=== PATIENT | female | born 1930 | race Caucasian/White ===

== ENCOUNTER 2016-05-05 05:08 | Inpatient (IN) | payer OTHER, BC ==
[~2016-05-05] VITALS: Ht 165.1 cm; Wt 109.4 kg
[~2016-05-05 05:08] MED LIST: ADVAIR HFA120 INHALA IH; ASPIR-LOW81 MG PO; BENICAR40 MG PO; CIPROFLOXACIN500 M1 PO; COUMADIN2 MG PO; COUMADIN2.5 MG PO; DUONEB 2.5-0.5 M3 ML AEROSOL; FUROSEMIDE20 MG PO; FUROSEMIDE40 MG PO; HYDROCODON-ACE1 EA11 PO; HYDROCODON-ACE1 EACH PO; IMDUR30 MG PO; ISOSORBIDE MONO30 MG PO; LASIX20 MG PO; LEVOTHYROXINE150 MCG PO; LOSARTAN POTAS100 MG PO; LOSARTAN POTASS50 MG PO; METOPROLOL SUCC25 MG PO; METOPROLOL TART25 MG PO; NITROSTAT0.4 MG SL; SPIRONOLACTONE25 MG PO; SYNTHROID150 MCG PO; TOPROL XL25 MG PO; VITAMIN D2000 UNIT PO
[2016-05-05 05:38] LABS: CREATININE 1.5 mg/dL (0.6-1.3); POTASSIUM 5.6 mEq/L (3.7-5.4)
[2016-05-05 06:08] LABS: HEMATOCRIT 34.6 % (36.0-46.0); MCH 28.4 PG (29.0-34.0); MCHC 33.5 G/DL (30.0-36.0); MCV 84.8 FL (83-99); MEAN PLAT.VOLUME 8.4 uM^3 (9.5-12.4); RBC DIS.WIDTH-CV 18.8 % (11.8-14.6); RBC DIS.WIDTH-SD 57.1 % (39-53); RED BLOOD COUNT 4.08 M/uL (3.80-5.20); WHITE BLOOD COUNT 3.3 K/uL (4.1-10.2)
[2016-05-05] MEDS ORDERED: WARFARIN SODIUM2 MG PO (06:08)
[2016-05-05] MEDS ORDERED: LOSARTAN POTASS50 MG PO (06:08)
[2016-05-05 06:09] LABS: CHLORIDE 101 mEq/L (99-109); POTASSIUM 4.6 mEq/L (3.7-5.4); SODIUM 136 mEq/L (136-147)
[2016-05-05] MEDS ORDERED: ISOSORBIDE DINI30 MG PO (06:10)
[2016-05-05 06:11] LABS: GLUCOSE 73 mg/dL (70-99)
[2016-05-05] MEDS ORDERED: OXYBUTYNIN CHLOR5 MG PO (06:11)
[2016-05-05] MEDS ORDERED: FUROSEMIDE40 MG PO (06:11)
[2016-05-05 06:12] LABS: ANION GAP 11 MEQ/L (2-14)
[2016-05-05 06:13] LABS: EOSINOPHIL (%) 6.6 % (0-5); EOSINOPHIL COUNT 0.2 K/uL (0-0.3); IMMATURE GRANULOCYTE (%) 0.3 % (0.0-0.7); IMMATURE GRANULOCYTE COUNT 0.1 K/uL; LYMPHOCYTE COUNT 0.7 K/uL (1.0-2.8); MONOCYTE (%) 12.6 % (3-12); MONOCYTE COUNT 0.4 K/uL (0-0.8); NEUTROPHIL COUNT 1.9 K/uL (1.8-6.4); PLATELET COUNT 171 K/uL (156-360)
[2016-05-05 06:14] LABS: INTER. NORMALIZED RATIO 2.5; PROTHROMBIN TIME 26.1 (9.2-11.2); PTT 34.7 (25-32)
[2016-05-05 06:15] LABS: GFR ESTIMATE (CALCULATED) 32 mL/min/
[2016-05-05 06:16] LABS: UREA NITROGEN (BUN) 30 mg/dL (9-23)
[2016-05-05 06:19] LABS: TROP-I INTERPRETATION NEGATIVE; TROPONIN-I 0.02 ng/mL (0.0-0.30)
[2016-05-05 06:26] LABS: ADD MIUA? YES; BILIRUBIN NEGATIVE; BLOOD LARGE; COLOR YELLOW ((YELLOW)); GLUCOSE (STRIP) NEGATIVE; KETONES NEGATIVE; LEUKOCYTES LARGE; NITRITE POSITIVE; PROTEIN (STRIP) 30; SPECIFIC GRAVITY 1.013 (1.000-1.030)
[2016-05-05 07:17] LABS: BACTERIA 1+ /HPF; CASTS NONE SEEN /LPF; CRYSTALS NONE SEEN; EPITHELIAL CELLS RARE /HPF; MUCUS NONE SEEN /LPF; RED BLOOD CELLS TNTC /HPF (0-5); UCUL ADDED? YES; WHITE BLOOD CELLS TNTC /HPF (0-5)
[2016-05-05 12:05] VITALS: BP 138/73
[2016-05-05 12:45] LABS: TROP-I INTERPRETATION NEGATIVE; TROPONIN-I 0.02 ng/mL (0.0-0.30)
[2016-05-05 16:57] VITALS: BP 148/69
[2016-05-05 18:22] LABS: TROP-I INTERPRETATION NEGATIVE; TROPONIN-I 0.11 ng/mL (0.0-0.30)
[2016-05-05 22:49] VITALS: BP 143/65
[2016-05-06 07:22] LABS: HEMATOCRIT 33.1 % (36.0-46.0); MCH 28.5 PG (29.0-34.0); MCHC 33.5 G/DL (30.0-36.0); MCV 84.9 FL (83-99); RBC DIS.WIDTH-CV 18.7 % (11.8-14.6); RBC DIS.WIDTH-SD 57.9 % (39-53); WHITE BLOOD COUNT 3.5 K/uL (4.1-10.2)
[2016-05-06 07:32] LABS: INTER. NORMALIZED RATIO 2.8; PROTHROMBIN TIME 29.7 (9.2-11.2)
[2016-05-06 07:45] LABS: ANION GAP 6 MEQ/L (2-14); CHLORIDE 101 MEQ/L (99-109); GFR ESTIMATE (CALCULATED) 32 mL/min/; GLUCOSE 88 mg/dL (70-99); POTASSIUM 4.1 MEQ/L (3.7-5.4); SAMPLE HEMOLYSIS CHECK 0; SAMPLE ICTERIC CHECK 0; SAMPLE LIPEMIA CHECK 0; SODIUM 135 MEQ/L (136-147); UREA NITROGEN (BUN) 28 mg/dL (9-23)
[2016-05-06 08:20] VITALS: BP 120/60
[2016-05-06 08:50] VITALS: BP 140/69
[2016-05-06 09:23] LABS: MEAN PLAT.VOLUME 9.1 uM^3 (9.5-12.4); PLATELET COUNT 118 K/uL (156-360)
[2016-05-06] MEDS ORDERED: LEVO-T150 MCG PO (12:10)
[2016-05-06] MEDS ORDERED: TOPROL XL50 MG PO (12:11)
[2016-05-06] MEDS ORDERED: ISOSORBIDE MONO30 MG PO (12:12)
[2016-05-06 16:47] VITALS: BP 148/77
[2016-05-06 22:23] VITALS: BP 122/72
[2016-05-07 06:49] LABS: HEMATOCRIT 32.4 % (36.0-46.0); MCH 27.9 PG (29.0-34.0); MCV 84.6 FL (83-99); MEAN PLAT.VOLUME 8.9 uM^3 (9.5-12.4); PLATELET COUNT 92 K/uL (156-360); RBC DIS.WIDTH-CV 18.8 % (11.8-14.6); RBC DIS.WIDTH-SD 58.1 % (39-53); RED BLOOD COUNT 3.83 M/uL (3.80-5.20); WHITE BLOOD COUNT 3.9 K/uL (4.1-10.2)
[2016-05-07 07:07] LABS: EOSINOPHIL COUNT 0.3 K/uL (0-0.3); IMMATURE GRANULOCYTE (%) 0.8 % (0.0-0.7); MONOCYTE (%) 10.4 % (3-12); MONOCYTE COUNT 0.4 K/uL (0-0.8); NEUTROPHIL (%) 56.1 % (45-76); NEUTROPHIL COUNT 2.2 K/uL (1.8-6.4)
[2016-05-07 07:10] LABS: INTER. NORMALIZED RATIO 2.8; PROTHROMBIN TIME 29.2 (9.2-11.2)
[2016-05-07 07:14] LABS: ANION GAP 6 MEQ/L (2-14); CHLORIDE 103 MEQ/L (99-109); GFR ESTIMATE (CALCULATED) 28 mL/min/; GLUCOSE 82 mg/dL (70-99); POTASSIUM 4.2 MEQ/L (3.7-5.4); SAMPLE HEMOLYSIS CHECK 0; SAMPLE ICTERIC CHECK 0; SAMPLE LIPEMIA CHECK 0; SODIUM 135 MEQ/L (136-147); UREA NITROGEN (BUN) 27 mg/dL (9-23)
[2016-05-07 08:00] VITALS: BP 138/80
[2016-05-07 16:00] VITALS: BP 175/86
[2016-05-07 23:29] VITALS: BP 144/76
[2016-05-08 07:58] LABS: INTER. NORMALIZED RATIO 2.7; PROTHROMBIN TIME 28.6 (9.2-11.2)
[2016-05-08 08:15] VITALS: BP 170/81
[2016-05-08 11:44] VITALS: BP 165/80
[2016-05-08 16:03] VITALS: BP 131/69
[2016-05-08 20:21] VITALS: BP 183/81
[2016-05-08 23:25] VITALS: BP 121/62
[2016-05-09 08:22] VITALS: BP 143/86
[2016-05-09 09:36] LABS: INTER. NORMALIZED RATIO 2.4; PROTHROMBIN TIME 24.8 (9.2-11.2)
[2016-05-09 16:53] VITALS: BP 181/81
[2016-05-09 23:00] VITALS: BP 143/77
[2016-05-10 06:42] LABS: INTER. NORMALIZED RATIO 2.5; PROTHROMBIN TIME 26.1 (9.2-11.2)
[2016-05-10 08:37] VITALS: BP 132/64
[2016-05-10 17:10] VITALS: BP 132/72
[2016-05-10 23:06] VITALS: BP 116/59
[2016-05-11] VITALS: BP 132/67
[2016-05-11 01:08] LABS: TROP-I INTERPRETATION NEGATIVE; TROPONIN-I 0.02 ng/mL (0.0-0.30)
[2016-05-11 07:02] LABS: INTER. NORMALIZED RATIO 2.5; PROTHROMBIN TIME 26.6 (9.2-11.2)
[2016-05-11 07:16] LABS: TROP-I INTERPRETATION NEGATIVE; TROPONIN-I 0.03 ng/mL (0.0-0.30)
[2016-05-11 07:46] VITALS: BP 122/56
[2016-05-11 12:37] LABS: TROP-I INTERPRETATION NEGATIVE; TROPONIN-I 0.02 ng/mL (0.0-0.30)
[2016-05-11 15:02] LABS: HEMATOCRIT 32.1 % (36.0-46.0); MCHC 32.4 G/DL (30.0-36.0); MCV 86.5 FL (83-99); MEAN PLAT.VOLUME 9.2 uM^3 (9.5-12.4); PLATELET COUNT 98 K/uL (156-360); RBC DIS.WIDTH-CV 19.1 % (11.8-14.6); RBC DIS.WIDTH-SD 59.5 % (39-53); RED BLOOD COUNT 3.71 M/uL (3.80-5.20); WHITE BLOOD COUNT 4.7 K/uL (4.1-10.2)
[2016-05-11 15:05] LABS: ANION GAP 8 MEQ/L (2-14); CHLORIDE 102 MEQ/L (99-109); GFR ESTIMATE (CALCULATED) 21 mL/min/; GLUCOSE 100 mg/dL (70-99); POTASSIUM 4.5 MEQ/L (3.7-5.4); SAMPLE HEMOLYSIS CHECK 0; SAMPLE ICTERIC CHECK 0; SAMPLE LIPEMIA CHECK 0; SODIUM 134 MEQ/L (136-147); UREA NITROGEN (BUN) 46 mg/dL (9-23)
[2016-05-11 16:15] LABS: EOSINOPHIL (%) 2.8 % (0-5); EOSINOPHIL COUNT 0.1 K/uL (0-0.3); IMMATURE GRANULOCYTE (%) 0.2 % (0.0-0.7); LYMPHOCYTE COUNT 0.5 K/uL (1.0-2.8); MONOCYTE (%) 4.4 % (3-12); MONOCYTE COUNT 0.2 K/uL (0-0.8); NEUTROPHIL (%) 81.6 % (45-76); NEUTROPHIL COUNT 3.9 K/uL (1.8-6.4)
[2016-05-11 18:35] VITALS: BP 130/74
[2016-05-11 19:50] VITALS: BP 138/62
[2016-05-12 02:30] VITALS: BP 143/79
[2016-05-12 08:28] LABS: INTER. NORMALIZED RATIO 2.6; PROTHROMBIN TIME 27.1 (9.2-11.2)
[2016-05-12 08:37] LABS: HEMATOCRIT 30.6 % (36.0-46.0); MCH 27.8 PG (29.0-34.0); MCV 86.7 FL (83-99); MEAN PLAT.VOLUME 9.5 uM^3 (9.5-12.4); PLATELET COUNT 89 K/uL (156-360); RBC DIS.WIDTH-CV 19.4 % (11.8-14.6); RED BLOOD COUNT 3.53 M/uL (3.80-5.20); WHITE BLOOD COUNT 4.5 K/uL (4.1-10.2)
[2016-05-12 08:52] LABS: ANION GAP 6 MEQ/L (2-14); CHLORIDE 101 MEQ/L (99-109); GFR ESTIMATE (CALCULATED) 19 mL/min/; GLUCOSE 87 mg/dL (70-99); SAMPLE HEMOLYSIS CHECK 0; SAMPLE ICTERIC CHECK 0; SAMPLE LIPEMIA CHECK 0; SODIUM 132 MEQ/L (136-147); UREA NITROGEN (BUN) 50 mg/dL (9-23)
[2016-05-12 08:54] LABS: EOSINOPHIL COUNT 0.3 K/uL (0-0.3); IMMATURE GRANULOCYTE (%) 0.2 % (0.0-0.7); LYMPHOCYTE COUNT 0.6 K/uL (1.0-2.8); MONOCYTE (%) 7.8 % (3-12); MONOCYTE COUNT 0.4 K/uL (0-0.8); NEUTROPHIL (%) 72.1 % (45-76); NEUTROPHIL COUNT 3.3 K/uL (1.8-6.4)
[2016-05-12 09:06] VITALS: BP 133/61
[2016-05-12 17:55] VITALS: BP 151/65
[2016-05-12 23:50] VITALS: BP 127/65
[2016-05-13 04:00] VITALS: BP 138/78
[2016-05-13 08:42] VITALS: BP 150/66
[2016-05-13 09:13] LABS: HEMATOCRIT 31.9 % (36.0-46.0); MCH 28.6 PG (29.0-34.0); MCHC 33.2 G/DL (30.0-36.0); MCV 86.2 FL (83-99); PLATELET COUNT 104 K/uL (156-360); RBC DIS.WIDTH-CV 19.5 % (11.8-14.6); RBC DIS.WIDTH-SD 60.7 % (39-53); WHITE BLOOD COUNT 4.5 K/uL (4.1-10.2)
[2016-05-13 09:21] LABS: INTER. NORMALIZED RATIO 2.5; PROTHROMBIN TIME 25.8 (9.2-11.2)
[2016-05-13 09:29] LABS: ANION GAP 5 MEQ/L (2-14); CHLORIDE 98 MEQ/L (99-109); GFR ESTIMATE (CALCULATED) 14 mL/min/; GLUCOSE 91 mg/dL (70-99); POTASSIUM 5.1 MEQ/L (3.7-5.4); SAMPLE HEMOLYSIS CHECK 0; SAMPLE ICTERIC CHECK 0; SAMPLE LIPEMIA CHECK 0; SODIUM 130 MEQ/L (136-147); UREA NITROGEN (BUN) 57 mg/dL (9-23)
[2016-05-13 09:31] LABS: EOSINOPHIL COUNT 0.3 K/uL (0-0.3); IMMATURE GRANULOCYTE (%) 0.2 % (0.0-0.7); LYMPHOCYTE COUNT 0.8 K/uL (1.0-2.8); MONOCYTE (%) 6.7 % (3-12); MONOCYTE COUNT 0.3 K/uL (0-0.8); NEUTROPHIL (%) 68.7 % (45-76); NEUTROPHIL COUNT 3.1 K/uL (1.8-6.4)
[2016-05-13 13:00] VITALS: BP 120/55
[2016-05-13 16:14] VITALS: BP 107/52
[2016-05-13 21:16] VITALS: BP 110/70
[2016-05-14 00:35] VITALS: BP 110/70
[2016-05-14 04:40] VITALS: BP 110/75
[2016-05-14 06:37] LABS: HEMATOCRIT 31.9 % (36.0-46.0); MCH 27.9 PG (29.0-34.0); MCHC 32.3 G/DL (30.0-36.0); MCV 86.4 FL (83-99); MEAN PLAT.VOLUME 9.3 uM^3 (9.5-12.4); PLATELET COUNT 97 K/uL (156-360); RBC DIS.WIDTH-CV 19.5 % (11.8-14.6); RBC DIS.WIDTH-SD 61.6 % (39-53); RED BLOOD COUNT 3.69 M/uL (3.80-5.20); WHITE BLOOD COUNT 4.2 K/uL (4.1-10.2)
[2016-05-14 06:46] LABS: INTER. NORMALIZED RATIO 2.5; PROTHROMBIN TIME 26.1 (9.2-11.2)
[2016-05-14 06:50] LABS: EOSINOPHIL (%) 8.6 % (0-5); EOSINOPHIL COUNT 0.4 K/uL (0-0.3); LYMPHOCYTE COUNT 0.9 K/uL (1.0-2.8); MONOCYTE (%) 8.4 % (3-12); MONOCYTE COUNT 0.4 K/uL (0-0.8); NEUTROPHIL (%) 60.1 % (45-76); NEUTROPHIL COUNT 2.5 K/uL (1.8-6.4)
[2016-05-14 06:58] LABS: ANION GAP 8 MEQ/L (2-14); CHLORIDE 100 MEQ/L (99-109); GFR ESTIMATE (CALCULATED) 13 mL/min/; GLUCOSE 91 mg/dL (70-99); POTASSIUM 5.5 MEQ/L (3.7-5.4); SAMPLE HEMOLYSIS CHECK 0; SAMPLE ICTERIC CHECK 0; SAMPLE LIPEMIA CHECK 0; SODIUM 130 MEQ/L (136-147); UREA NITROGEN (BUN) 64 mg/dL (9-23)
[2016-05-14 08:40] VITALS: BP 133/69
[2016-05-14 17:19] VITALS: BP 168/72
[2016-05-15 00:12] VITALS: BP 130/70
[2016-05-15 07:13] LABS: INTER. NORMALIZED RATIO 2.5; PROTHROMBIN TIME 26.2 (9.2-11.2)
[2016-05-15 07:16] LABS: HEMATOCRIT 30.8 % (36.0-46.0); MCH 28.3 PG (29.0-34.0); MCHC 32.8 G/DL (30.0-36.0); MCV 86.3 FL (83-99); MEAN PLAT.VOLUME 9.2 uM^3 (9.5-12.4); PLATELET COUNT 100 K/uL (156-360); RBC DIS.WIDTH-CV 19.3 % (11.8-14.6); RBC DIS.WIDTH-SD 60.8 % (39-53); RED BLOOD COUNT 3.57 M/uL (3.80-5.20); WHITE BLOOD COUNT 3.8 K/uL (4.1-10.2)
[2016-05-15 07:20] LABS: EOSINOPHIL (%) 6.4 % (0-5); EOSINOPHIL COUNT 0.2 K/uL (0-0.3); LYMPHOCYTE COUNT 1.2 K/uL (1.0-2.8); MONOCYTE (%) 11.7 % (3-12); MONOCYTE COUNT 0.4 K/uL (0-0.8); NEUTROPHIL (%) 48.2 % (45-76); NEUTROPHIL COUNT 1.8 K/uL (1.8-6.4)
[2016-05-15 07:29] LABS: ALKALINE PHOSPHATASE 172 IU/L (3-129); ANION GAP 10 MEQ/L (2-14); CHLORIDE 98 MEQ/L (99-109); GFR ESTIMATE (CALCULATED) 12 mL/min/; GLUCOSE 73 mg/dL (70-99); MAGNESIUM 2.3 mg/dl (1.3-2.7); POTASSIUM 5.5 MEQ/L (3.7-5.4); SAMPLE HEMOLYSIS CHECK 0; SAMPLE ICTERIC CHECK 0; SAMPLE LIPEMIA CHECK 0; SODIUM 132 MEQ/L (136-147); TOTAL BILIRUBIN 0.7 MG/DL (0.0-1.0); UREA NITROGEN (BUN) 67 mg/dL (9-23); URIC ACID 9.3 mg/dL (3.1-9.2)
[2016-05-15 16:31] VITALS: BP 132/72
[2016-05-15 23:34] VITALS: BP 135/78
[2016-05-16 07:09] LABS: INTER. NORMALIZED RATIO 2.3
[2016-05-16 07:11] LABS: HEMATOCRIT 33.6 % (36.0-46.0); MCH 28.1 PG (29.0-34.0); MCHC 32.4 G/DL (30.0-36.0); MCV 86.6 FL (83-99); MEAN PLAT.VOLUME 9.4 uM^3 (9.5-12.4); PLATELET COUNT 102 K/uL (156-360); RBC DIS.WIDTH-CV 19.6 % (11.8-14.6); RBC DIS.WIDTH-SD 61.8 % (39-53); RED BLOOD COUNT 3.88 M/uL (3.80-5.20); WHITE BLOOD COUNT 4.1 K/uL (4.1-10.2)
[2016-05-16 07:34] LABS: ALKALINE PHOSPHATASE 172 IU/L (3-129); ANION GAP 8 MEQ/L (2-14); CHLORIDE 99 MEQ/L (99-109); GFR ESTIMATE (CALCULATED) 12 mL/min/; GLUCOSE 77 mg/dL (70-99); POTASSIUM 5.9 MEQ/L (3.7-5.4); SAMPLE HEMOLYSIS CHECK 0; SAMPLE ICTERIC CHECK 0; SAMPLE LIPEMIA CHECK 0; SODIUM 131 MEQ/L (136-147); TOTAL BILIRUBIN 0.7 MG/DL (0.0-1.0); UREA NITROGEN (BUN) 72 mg/dL (9-23)
[2016-05-16 07:38] LABS: BASOPHIL COUNT 0.1 K/uL (0-0.1); EOSINOPHIL (%) 4.2 % (0-5); EOSINOPHIL COUNT 0.2 K/uL (0-0.3); IMMATURE GRANULOCYTE (%) 0.5 % (0.0-0.7); LYMPHOCYTE COUNT 1.4 K/uL (1.0-2.8); MONOCYTE (%) 11.1 % (3-12); MONOCYTE COUNT 0.5 K/uL (0-0.8); NEUTROPHIL (%) 48.2 % (45-76)
[2016-05-16 07:41] LABS: ANION GAP 8 MEQ/L (2-14); CHLORIDE 99 MEQ/L (99-109); GFR ESTIMATE (CALCULATED) 11 mL/min/; GLUCOSE 78 mg/dL (70-99); SAMPLE HEMOLYSIS CHECK 1; SAMPLE ICTERIC CHECK 0; SAMPLE LIPEMIA CHECK 0; SODIUM 131 MEQ/L (136-147); UREA NITROGEN (BUN) 72 mg/dL (9-23)
[2016-05-16 08:20] VITALS: BP 140/72
[2016-05-16 16:28] VITALS: BP 142/72
[2016-05-16 18:57] LABS: ANION GAP 6 MEQ/L (2-14); CHLORIDE 100 MEQ/L (99-109); POTASSIUM 5.7 MEQ/L (3.7-5.4); SAMPLE HEMOLYSIS CHECK 0; SAMPLE ICTERIC CHECK 0; SAMPLE LIPEMIA CHECK 0; SODIUM 129 MEQ/L (136-147)
[2016-05-16 19:14] LABS: GFR ESTIMATE (CALCULATED) 12 mL/min/; GLUCOSE 98 mg/dL (70-99); UREA NITROGEN (BUN) 72 mg/dL (9-23)
[2016-05-16 21:44] LABS: ADD MIUA? YES; BILIRUBIN NEGATIVE; BLOOD LARGE; COLOR YELLOW ((YELLOW)); GLUCOSE (STRIP) NEGATIVE; KETONES NEGATIVE; LEUKOCYTES NEGATIVE; NITRITE NEGATIVE; PROTEIN (STRIP) 30; UROBILINOGEN 0.2 MG/DL (0.2-1.0)
[2016-05-16 22:27] LABS: RED BLOOD CELLS 20-30 /HPF (0-5)
[2016-05-16 22:28] LABS: BACTERIA 2+ /HPF; EPITHELIAL CELLS 1+ /HPF; MUCUS NONE SEEN /LPF; OTHER BUDDING YEAST 1+; UCUL ADDED? NO; WHITE BLOOD CELLS 0-5 /HPF (0-5)
[2016-05-17 00:02] VITALS: BP 120/62
[2016-05-17 07:29] LABS: INTER. NORMALIZED RATIO 2.4; PROTHROMBIN TIME 24.8 (9.2-11.2)
[2016-05-17 08:10] VITALS: BP 136/90
[2016-05-17 10:56] LABS: ANION GAP 8 MEQ/L (2-14); CHLORIDE 101 MEQ/L (99-109); GFR ESTIMATE (CALCULATED) 11 mL/min/; GLUCOSE 72 mg/dL (70-99); SAMPLE HEMOLYSIS CHECK 0; SAMPLE ICTERIC CHECK 0; SAMPLE LIPEMIA CHECK 0; SODIUM 131 MEQ/L (136-147); UREA NITROGEN (BUN) 75 mg/dL (9-23)
[2016-05-17 10:59] LABS: POTASSIUM 6.1 MEQ/L (3.7-5.4)
[2016-05-17 16:28] LABS: ANION GAP 9 MEQ/L (2-14); CHLORIDE 101 MEQ/L (99-109); POTASSIUM 5.8 MEQ/L (3.7-5.4); SAMPLE HEMOLYSIS CHECK 0; SAMPLE ICTERIC CHECK 0; SAMPLE LIPEMIA CHECK 0; SODIUM 132 MEQ/L (136-147)
[2016-05-17 16:33] LABS: GFR ESTIMATE (CALCULATED) 11 mL/min/; GLUCOSE 83 mg/dL (70-99); UREA NITROGEN (BUN) 76 mg/dL (9-23)
[2016-05-17 17:08] VITALS: BP 125/69
[2016-05-17 17:37] LABS: AHBS INDEX 0.85; HBSG INDEX 0.17; HEPATITIS B SURFACE ANTIBODY Nonreactive
[2016-05-17 17:38] LABS: ANTI-HEPATITIS B CORE (IGM) Nonreactive; HBC IgM INDEX 0.08
[2016-05-18 07:18] LABS: HEMATOCRIT 33.1 % (36.0-46.0); MCH 28.1 PG (29.0-34.0); MCV 87.8 FL (83-99); NRBC (%) 0.9 /100 WBC (0-0); RBC DIS.WIDTH-CV 19.5 % (11.8-14.6); RBC DIS.WIDTH-SD 62.6 % (39-53); RED BLOOD COUNT 3.77 M/uL (3.80-5.20); WHITE BLOOD COUNT 3.5 K/uL (4.1-10.2)
[2016-05-18 07:28] LABS: EOSINOPHIL (%) 1.7 % (0-5); EOSINOPHIL COUNT 0.1 K/uL (0-0.3); IMMATURE GRANULOCYTE (%) 0.6 % (0.0-0.7); LYMPHOCYTE COUNT 1.1 K/uL (1.0-2.8); MONOCYTE (%) 8.1 % (3-12); MONOCYTE COUNT 0.3 K/uL (0-0.8); NEUTROPHIL (%) 56.4 % (45-76)
[2016-05-18 07:48] LABS: ANION GAP 11 MEQ/L (2-14); CHLORIDE 100 MEQ/L (99-109); GFR ESTIMATE (CALCULATED) 10 mL/min/; GLUCOSE 71 mg/dL (70-99); POTASSIUM 5.4 MEQ/L (3.7-5.4); SAMPLE HEMOLYSIS CHECK 0; SAMPLE ICTERIC CHECK 0; SAMPLE LIPEMIA CHECK 0; SODIUM 132 MEQ/L (136-147); UREA NITROGEN (BUN) 81 mg/dL (9-23)
[2016-05-18 09:40] LABS: INTER. NORMALIZED RATIO 2.7; PROTHROMBIN TIME 28.8 (9.2-11.2)
[2016-05-18 11:26] LABS: MEAN PLAT.VOLUME 9.5 uM^3 (9.5-12.4); PLAT.SUFFICIENCY DECREASED; USER ID TLW
[2016-05-18 11:31] LABS: PLATELET COUNT 68 K/uL (156-360)
[2016-05-18 15:47] VITALS: BP 120/58
[2016-05-19 00:17] VITALS: BP 105/52
[2016-05-19 07:42] LABS: HEMATOCRIT 31.9 % (36.0-46.0); MCH 28.6 PG (29.0-34.0); MCHC 32.6 G/DL (30.0-36.0); MCV 87.6 FL (83-99); MEAN PLAT.VOLUME 9.4 uM^3 (9.5-12.4); NRBC (%) 0.8 /100 WBC (0-0); PLATELET COUNT 70 K/uL (156-360); RBC DIS.WIDTH-CV 19.4 % (11.8-14.6); RBC DIS.WIDTH-SD 62.1 % (39-53); RED BLOOD COUNT 3.64 M/uL (3.80-5.20); WHITE BLOOD COUNT 3.7 K/uL (4.1-10.2)
[2016-05-19 07:50] VITALS: BP 125/65
[2016-05-19 07:50] LABS: INTER. NORMALIZED RATIO 3.2; PROTHROMBIN TIME 33.4 (9.2-11.2)
[2016-05-19 07:58] LABS: BASOPHIL COUNT 0.1 K/uL (0-0.1); EOSINOPHIL (%) 1.6 % (0-5); EOSINOPHIL COUNT 0.1 K/uL (0-0.3); IMMATURE GRANULOCYTE (%) 0.3 % (0.0-0.7); LYMPHOCYTE COUNT 0.9 K/uL (1.0-2.8); MONOCYTE (%) 9.3 % (3-12); MONOCYTE COUNT 0.3 K/uL (0-0.8); NEUTROPHIL (%) 62.9 % (45-76); NEUTROPHIL COUNT 2.3 K/uL (1.8-6.4)
[2016-05-19 08:03] LABS: ANION GAP 8 MEQ/L (2-14); CHLORIDE 99 MEQ/L (99-109); GFR ESTIMATE (CALCULATED) 12 mL/min/; GLUCOSE 86 mg/dL (70-99); POTASSIUM 4.5 MEQ/L (3.7-5.4); SAMPLE HEMOLYSIS CHECK 0; SAMPLE ICTERIC CHECK 0; SAMPLE LIPEMIA CHECK 0; SODIUM 134 MEQ/L (136-147); UREA NITROGEN (BUN) 59 mg/dL (9-23)
[2016-05-19 15:45] VITALS: BP 136/43
[2016-05-19 23:05] VITALS: BP 102/58
[2016-05-20 07:56] LABS: HEMATOCRIT 32.2 % (36.0-46.0); MCH 27.4 PG (29.0-34.0); MCHC 31.1 G/DL (30.0-36.0); MCV 88.2 FL (83-99); MEAN PLAT.VOLUME 8.9 uM^3 (9.5-12.4); NRBC (%) 0.5 /100 WBC (0-0); PLATELET COUNT 55 K/uL (156-360); RBC DIS.WIDTH-CV 19.4 % (11.8-14.6); RBC DIS.WIDTH-SD 62.5 % (39-53); RED BLOOD COUNT 3.65 M/uL (3.80-5.20); WHITE BLOOD COUNT 3.5 K/uL (4.1-10.2)
[2016-05-20 08:01] LABS: EOSINOPHIL (%) 1.1 % (0-5); IMMATURE GRANULOCYTE (%) 0.3 % (0.0-0.7); LYMPHOCYTE COUNT 0.9 K/uL (1.0-2.8); MONOCYTE (%) 7.9 % (3-12); MONOCYTE COUNT 0.3 K/uL (0-0.8); NEUTROPHIL (%) 64.2 % (45-76); NEUTROPHIL COUNT 2.3 K/uL (1.8-6.4)
[2016-05-20 08:04] LABS: INTER. NORMALIZED RATIO 2.9; PROTHROMBIN TIME 30.7 (9.2-11.2)
[2016-05-20 08:15] LABS: ANION GAP 9 MEQ/L (2-14); CHLORIDE 99 MEQ/L (99-109); GFR ESTIMATE (CALCULATED) 11 mL/min/; POTASSIUM 4.2 MEQ/L (3.7-5.4); SAMPLE HEMOLYSIS CHECK 0; SAMPLE ICTERIC CHECK 0; SAMPLE LIPEMIA CHECK 0; SODIUM 134 MEQ/L (136-147); UREA NITROGEN (BUN) 68 mg/dL (9-23)
[2016-05-20 08:16] LABS: GLUCOSE 119 mg/dL (70-99)
[2016-05-20 15:15] VITALS: BP 120/64
[2016-05-20 22:49] VITALS: BP 128/60
[2016-05-21 08:00] LABS: INTER. NORMALIZED RATIO 2.4; PROTHROMBIN TIME 24.6 (9.2-11.2)
[2016-05-21 08:56] VITALS: BP 112/82
[2016-05-21 15:20] VITALS: BP 142/61
[2016-05-22] VITALS: BP 123/79
[2016-05-22 06:19] LABS: HEMATOCRIT 30.8 % (36.0-46.0); MCH 27.1 PG (29.0-34.0); MCHC 31.5 G/DL (30.0-36.0); RBC DIS.WIDTH-CV 18.7 % (11.8-14.6); RBC DIS.WIDTH-SD 58.8 % (39-53); RED BLOOD COUNT 3.58 M/uL (3.80-5.20); WHITE BLOOD COUNT 3.3 K/uL (4.1-10.2)
[2016-05-22 06:42] LABS: INTER. NORMALIZED RATIO 2.2; PROTHROMBIN TIME 22.9 (9.2-11.2)
[2016-05-22 06:43] LABS: EOSINOPHIL (%) 0.9 % (0-5); IMMATURE GRANULOCYTE (%) 0.3 % (0.0-0.7); MONOCYTE (%) 11.7 % (3-12); MONOCYTE COUNT 0.4 K/uL (0-0.8); NEUTROPHIL (%) 57.1 % (45-76); NEUTROPHIL COUNT 1.9 K/uL (1.8-6.4)
[2016-05-22 07:09] LABS: ANION GAP 10 MEQ/L (2-14); CHLORIDE 96 MEQ/L (99-109); GFR ESTIMATE (CALCULATED) 11 mL/min/; POTASSIUM 4.2 MEQ/L (3.7-5.4); SAMPLE HEMOLYSIS CHECK 0; SAMPLE ICTERIC CHECK 0; SAMPLE LIPEMIA CHECK 0; SODIUM 132 MEQ/L (136-147); UREA NITROGEN (BUN) 57 mg/dL (9-23)
[2016-05-22 07:10] LABS: GLUCOSE 84 mg/dL (70-99)
[2016-05-22 07:16] LABS: MEAN PLAT.VOLUME 8.9 uM^3 (9.5-12.4); PLAT.SUFFICIENCY DECREASED; PLATELET COUNT 46 K/uL (156-360); USER ID STC
[2016-05-22 13:33] VITALS: BP 112/70
[2016-05-22 19:03] VITALS: BP 112/70
[2016-05-22 20:51] VITALS: BP 136/75
[2016-05-23] VITALS: BP 115/67
[2016-05-23 06:47] LABS: HEMATOCRIT 29.5 % (36.0-46.0); MCHC 31.5 G/DL (30.0-36.0); MCV 85.5 FL (83-99); NRBC (%) 0.8 /100 WBC (0-0); RBC DIS.WIDTH-CV 18.7 % (11.8-14.6); RBC DIS.WIDTH-SD 58.3 % (39-53); RED BLOOD COUNT 3.45 M/uL (3.80-5.20); WHITE BLOOD COUNT 3.1 K/uL (4.1-10.2)
[2016-05-23 06:57] LABS: PROTHROMBIN TIME 20.6 (9.2-11.2)
[2016-05-23 07:11] LABS: ANION GAP 7 MEQ/L (2-14); CHLORIDE 96 MEQ/L (99-109); GFR ESTIMATE (CALCULATED) 16 mL/min/; GLUCOSE 81 mg/dL (70-99); POTASSIUM 4.3 MEQ/L (3.7-5.4); SAMPLE HEMOLYSIS CHECK 0; SAMPLE ICTERIC CHECK 0; SAMPLE LIPEMIA CHECK 0; SODIUM 130 MEQ/L (136-147); UREA NITROGEN (BUN) 40 mg/dL (9-23)
[2016-05-23 07:33] LABS: EOSINOPHIL (%) 0.7 % (0-5); LYMPHOCYTE COUNT 0.8 K/uL (1.0-2.8); MONOCYTE (%) 15.6 % (3-12); MONOCYTE COUNT 0.5 K/uL (0-0.8); NEUTROPHIL (%) 57.3 % (45-76); NEUTROPHIL COUNT 1.8 K/uL (1.8-6.4)
[2016-05-23 08:00] LABS: MEAN PLAT.VOLUME 9.1 uM^3 (9.5-12.4); PLAT.SUFFICIENCY DECREASED; PLATELET COUNT 36 K/uL (156-360); USER ID CL
[2016-05-23 08:34] VITALS: BP 122/58
[2016-05-23] MEDS ORDERED: DUONEB 2.5-0.5 M3 ML PEP (13:58)
[2016-05-23] MEDS ORDERED: ASPIR-LOW81 MG PO (13:59)
[2016-05-23] MEDS ORDERED: LOPRESSOR25 MG PO (13:59)
[2016-05-23] MEDS ORDERED: CALCIUM ACETAT667 MG PO (13:59)
[2016-05-23] MEDS ORDERED: ENDOCET 5-3251 EACH PO (14:02)
[2016-05-24] MEDS ORDERED: CETRAXAL1 EACH RIGHT EAR ×2 (12:26→12:37)
== END 2016-05-23 16:36 | DRG 853 ==
LOC: EME → EDBD 05:08 → EME 05:08 → 5EAST 08:01 → EDOF 08:01 → 5EAST 09:00
PROVIDERS: Emergency Medicine; Hospitalist; Internal Medicine; Internal Medicine Nephrology; Nurse Practitioner Family
PROC: 0HDMXZZ Extraction of Right Foot Skin, External Approach (ICD-10-PCS; principal; 2016-05-09)
PROC: 0JDQ0ZZ Extraction of Right Foot Subcutaneous Tissue and Fascia, Open Approach (ICD-10-PCS; 2016-05-13)
PROC: B543ZZA Ultrasonography of Right Jugular Veins, Guidance (ICD-10-PCS; 2016-05-17)
PROC: 02HV33Z Insertion of Infusion Device into Superior Vena Cava, Percutaneous Approach (ICD-10-PCS; 2016-05-17)
PROC: 5A1D60Z (ICD-10-PCS; 2016-05-18)
PROC: 02H633Z Insertion of Infusion Device into Right Atrium, Percutaneous Approach (ICD-10-PCS; 2016-05-22)
DX: A41.02 Sepsis due to Methicillin resistant Staphylococcus aureus (principal); L03.115 Cellulitis of right lower limb; N39.0 Urinary tract infection, site not specified; B96.20 Unspecified Escherichia coli [E. coli] as the cause of diseases classified elsewhere; R65.20 Severe sepsis without septic shock; N17.0 Acute kidney failure with tubular necrosis; T50.2X5A Adverse effect of carbonic-anhydrase inhibitors, benzothiadiazides and other diuretics, initial encounter; T36.8X5A Adverse effect of other systemic antibiotics, initial encounter; I13.0 Hypertensive heart and chronic kidney disease with heart failure and stage 1 through stage 4 chronic kidney disease, or unspecified chronic kidney disease; I50.22 Chronic systolic (congestive) heart failure; N18.3 Chronic kidney disease, stage 3 (moderate); J96.11 Chronic respiratory failure with hypoxia; R41.0 Disorientation, unspecified; R07.89 Other chest pain; E78.5 Hyperlipidemia, unspecified; I48.2 Chronic atrial fibrillation; E03.9 Hypothyroidism, unspecified; E66.01 Morbid (severe) obesity due to excess calories; I87.2 Venous insufficiency (chronic) (peripheral); L30.8 Other specified dermatitis; I89.0 Lymphedema, not elsewhere classified; S91.301A Unspecified open wound, right foot, initial encounter; S90.821A Blister (nonthermal), right foot, initial encounter; W07.XXXA Fall from chair, initial encounter; Y92.009 Unspecified place in unspecified non-institutional (private) residence as the place of occurrence of the external cause; L89.892 Pressure ulcer of other site, stage 2; B96.4 Proteus (mirabilis) (morganii) as the cause of diseases classified elsewhere; E87.5 Hyperkalemia; E87.1 Hypo-osmolality and hyponatremia; D61.818 Other pancytopenia; E86.0 Dehydration; Z79.01 Long term (current) use of anticoagulants; I25.2 Old myocardial infarction; Z86.73 Personal history of transient ischemic attack (TIA), and cerebral infarction without residual deficits; Z99.81 Dependence on supplemental oxygen; Z79.82 Long term (current) use of aspirin; Z68.32 Body mass index [BMI] 32.0-32.9, adult
CPT/HCPCS: 70450; 71010; 73610; 73630; 76770; 80047; 80048; 80048 91; 80053; 80069; 80202; 81003; 82565; 82570; 83605; 83735; 84100; 84132 91; 84156; 84484; 84550; 85025; 85027; 85610; 85730; 86705; 86706; 87040; 87070; 87075; 87077; 87086; 87147; 87186; 87205; 87340; 87801; 93005; 93306; 93970; 94799; 97530 GO; 97530 GP; 99202; 99281; 99285; C1750; C1752; J0610; J0690; J0696; J1100; J1644; J1815; J2270; J2405; J2543; J3010; J3370; J7030; J7040; J7050

== ENCOUNTER 2016-05-24 11:36 | Emergency (ER) | payer OTHER, BC ==
[~2016-05-24] VITALS: Ht 162.6 cm; Wt 113.8 kg
[~2016-05-24 11:36] MED LIST changes: +CALCIUM ACETAT667 MG PO; +DUONEB 2.5-0.5 M3 ML PEP; +ENDOCET 5-3251 EACH PO; +ISOSORBIDE DINI30 MG PO; +LEVO-T150 MCG PO; +LOPRESSOR25 MG PO; +OXYBUTYNIN CHLOR5 MG PO; +TOPROL XL50 MG PO; +WARFARIN SODIUM2 MG PO
[2016-05-24] MEDS ORDERED: CETRAXAL1 EACH RIGHT EAR ×2 (12:26→12:37)
[2016-05-24 14:01] VITALS: BP 156/80
== END 2016-05-24 14:25 ==
LOC: EME 11:36
DX: S09.21XA Traumatic rupture of right ear drum, initial encounter (principal); X58.XXXA Exposure to other specified factors, initial encounter; Y92.129 Unspecified place in nursing home as the place of occurrence of the external cause; I12.0 Hypertensive chronic kidney disease with stage 5 chronic kidney disease or end stage renal disease; N18.6 End stage renal disease; Z99.2 Dependence on renal dialysis; I25.2 Old myocardial infarction; Z86.73 Personal history of transient ischemic attack (TIA), and cerebral infarction without residual deficits; E66.01 Morbid (severe) obesity due to excess calories; Z68.41 Body mass index [BMI] 40.0-44.9, adult
CPT/HCPCS: 99281; 99284

== ENCOUNTER 2016-06-04 14:29 | Inpatient (IN) | payer OTHER, BC ==
[~2016-06-04] VITALS: Ht 30.5 cm; Wt 107.8 kg
[~2016-06-04 14:29] MED LIST changes: +CETRAXAL1 EACH RIGHT EAR
[2016-06-04 15:27] LABS: CHLORIDE 95 mEq/L (99-109); POTASSIUM 3.5 mEq/L (3.7-5.4); SODIUM 130 mEq/L (136-147)
[2016-06-04 15:29] LABS: GLUCOSE 106 mg/dL (70-99)
[2016-06-04 15:31] LABS: ANION GAP 7 MEQ/L (2-14)
[2016-06-04 15:33] LABS: ALKALINE PHOSPHATASE 88 IU/L (3-129); GFR ESTIMATE (CALCULATED) 16 mL/min/
[2016-06-04 15:34] LABS: UREA NITROGEN (BUN) 19 mg/dL (9-23)
[2016-06-04 15:37] LABS: EOSINOPHIL (%) 0.4 % (0-5); HEMATOCRIT 28.6 % (36.0-46.0); IMMATURE GRANULOCYTE (%) 0.4 % (0.0-0.7); IMMATURE GRANULOCYTE COUNT 0.1 K/uL; LYMPHOCYTE COUNT 0.6 K/uL (1.0-2.8); MCH 28.6 PG (29.0-34.0); MCHC 31.1 G/DL (30.0-36.0); MEAN PLAT.VOLUME 9.2 uM^3 (9.5-12.4); MONOCYTE (%) 9.7 % (3-12); MONOCYTE COUNT 0.3 K/uL (0-0.8); NEUTROPHIL COUNT 1.8 K/uL (1.8-6.4); RBC DIS.WIDTH-CV 21.9 % (11.8-14.6); RBC DIS.WIDTH-SD 69.9 % (39-53); RED BLOOD COUNT 3.11 M/uL (3.80-5.20); WHITE BLOOD COUNT 2.7 K/uL (4.1-10.2)
[2016-06-04 15:38] LABS: PLATELET COUNT 86 K/uL (156-360)
[2016-06-04] MEDS ORDERED: COUMADIN3 MG PO (16:04)
[2016-06-04] MEDS ORDERED: LEVO-T75 MCG PO (16:09)
[2016-06-04 16:28] LABS: ADD MIUA? YES; BILIRUBIN NEGATIVE; BLOOD LARGE; COLOR AMBER ((YELLOW)); GLUCOSE (STRIP) NEGATIVE; KETONES NEGATIVE; LEUKOCYTES MODERATE; NITRITE NEGATIVE; PROTEIN (STRIP) 100; SPECIFIC GRAVITY 1.017 (1.000-1.030); UROBILINOGEN 0.2 MG/DL (0.2-1.0)
[2016-06-04 16:42] LABS: BACTERIA 4+ /HPF; EPITHELIAL CELLS 1+ /HPF; MUCUS TRACE /LPF; OTHER RENAL CELLS; RED BLOOD CELLS 40-50 /HPF (0-5); UCUL ADDED? YES; WHITE BLOOD CELLS TNTC /HPF (0-5)
[2016-06-04] MEDS ORDERED: DIALYVITE 3,001 EACH PO (17:09)
[2016-06-04] MEDS ORDERED: OXYBUTYNIN CHLOR5 M1 PO (17:10)
[2016-06-04 22:58] VITALS: BP 122/76
[2016-06-04 23:17] VITALS: BP 122/76
[2016-06-05 04:20] VITALS: BP 118/76
[2016-06-05 06:52] LABS: INTER. NORMALIZED RATIO 2.4; PROTHROMBIN TIME 25.3 (9.2-11.2)
[2016-06-05 08:30] VITALS: BP 108/59
[2016-06-05 12:11] LABS: ANION GAP 5 MEQ/L (2-14); CHLORIDE 95 MEQ/L (99-109); GFR ESTIMATE (CALCULATED) 15 mL/min/; GLUCOSE 77 mg/dL (70-99); POTASSIUM 3.8 MEQ/L (3.7-5.4); SAMPLE HEMOLYSIS CHECK 0; SAMPLE ICTERIC CHECK 0; SAMPLE LIPEMIA CHECK 0; SODIUM 128 MEQ/L (136-147); UREA NITROGEN (BUN) 21 mg/dL (9-23)
[2016-06-05 12:41] LABS: EOSINOPHIL (%) 0.3 % (0-5); HEMATOCRIT 21.4 % (36.0-46.0); IMMATURE GRANULOCYTE (%) 0.3 % (0.0-0.7); LYMPHOCYTE COUNT 0.7 K/uL (1.0-2.8); MCH 27.8 PG (29.0-34.0); MCHC 30.8 G/DL (30.0-36.0); MCV 90.6 FL (83-99); MEAN PLAT.VOLUME 9.7 uM^3 (9.5-12.4); MONOCYTE (%) 9.5 % (3-12); MONOCYTE COUNT 0.3 K/uL (0-0.8); NEUTROPHIL (%) 68.2 % (45-76); NEUTROPHIL COUNT 2.3 K/uL (1.8-6.4); PLATELET COUNT 81 K/uL (156-360); RBC DIS.WIDTH-CV 21.9 % (11.8-14.6); RBC DIS.WIDTH-SD 70.8 % (39-53); WHITE BLOOD COUNT 3.4 K/uL (4.1-10.2)
[2016-06-05 12:42] LABS: RED BLOOD COUNT 2.37 M/uL (3.80-5.20)
[2016-06-05 13:46] LABS: HEMATOLOGY COMMENT 1 SMEAR COMPATIBLE; USER ID CL
[2016-06-05 13:50] LABS: HEMATOCRIT 22.1 % (36.0-46.0); MCV 90.2 FL (83-99)
[2016-06-05 21:00] VITALS: BP 129/60
[2016-06-05 23:43] VITALS: BP 110/53
[2016-06-06] VITALS (10 sets, daily range): BP systolic 15–122; BP diastolic 50–66
[2016-06-06 07:24] LABS: INTER. NORMALIZED RATIO 2.5; PROTHROMBIN TIME 26.4 (9.2-11.2)
[2016-06-06 07:41] LABS: EOSINOPHIL (%) 0 % (0-5); HEMATOCRIT 26.8 % (36.0-46.0); IMMATURE GRANULOCYTE (%) 0.3 % (0.0-0.7); LYMPHOCYTE COUNT 0.8 K/uL (1.0-2.8); MCH 28.2 PG (29.0-34.0); MCHC 31.7 G/DL (30.0-36.0); MEAN PLAT.VOLUME 9.3 uM^3 (9.5-12.4); MONOCYTE (%) 12.1 % (3-12); MONOCYTE COUNT 0.4 K/uL (0-0.8); NEUTROPHIL (%) 63.4 % (45-76); NRBC (%) 1.7 /100 WBC (0-0); PLATELET COUNT 73 K/uL (156-360); RBC DIS.WIDTH-CV 21.6 % (11.8-14.6); WHITE BLOOD COUNT 3.2 K/uL (4.1-10.2)
[2016-06-06 07:50] LABS: RED BLOOD COUNT 3.01 M/uL (3.80-5.20)
[2016-06-06 08:10] LABS: ANION GAP 7 MEQ/L (2-14); CHLORIDE 97 MEQ/L (99-109); GLUCOSE 93 mg/dL (70-99); POTASSIUM 3.3 MEQ/L (3.7-5.4); SAMPLE HEMOLYSIS CHECK 0; SAMPLE ICTERIC CHECK 0; SAMPLE LIPEMIA CHECK 0; SODIUM 130 MEQ/L (136-147); UREA NITROGEN (BUN) 14 mg/dL (9-23)
[2016-06-06 08:25] LABS: GFR ESTIMATE (CALCULATED) 20 mL/min/; VANCOMYCIN, TROUGH 10.4 MCG/ML (10-20)
[2016-06-06 14:29] LABS: POC NON-PRINT COM 1 ND
[2016-06-06 19:59] LABS: METH RESISTANT S AUREUS PCR NEGATIVE (NEGATIVE)
[2016-06-06 20:07] LABS: PROBE CHECK PASS; SPECIMEN PROCESSING CONTROL PASS
[2016-06-07 04:00] VITALS: BP 124/68
[2016-06-07 05:51] LABS: HEMATOCRIT 27.7 % (36.0-46.0); INSTRUMENT ABS NEUTROPHIL CT 2.2 K/uL; MCH 28.6 PG (29.0-34.0); MCHC 30.3 G/DL (30.0-36.0); MEAN PLAT.VOLUME 9.6 uM^3 (9.5-12.4); PLATELET COUNT 73 K/uL (156-360); RBC DIS.WIDTH-CV 22.6 % (11.8-14.6); RED BLOOD COUNT 2.94 M/uL (3.80-5.20); WHITE BLOOD COUNT 3.3 K/uL (4.1-10.2)
[2016-06-07 05:52] LABS: MCV 94.2 FL (83-99)
[2016-06-07 05:58] LABS: EOSINOPHIL (%) 0 % (0-5); IMMATURE GRANULOCYTE (%) 1.5 % (0.0-0.7); IMMATURE GRANULOCYTE COUNT 0.1 K/uL; LYMPHOCYTE COUNT 0.7 K/uL (1.0-2.8); MONOCYTE (%) 11.1 % (3-12); MONOCYTE COUNT 0.4 K/uL (0-0.8); NEUTROPHIL (%) 64.6 % (45-76); NEUTROPHIL COUNT 2.2 K/uL (1.8-6.4)
[2016-06-07 05:59] LABS: INTER. NORMALIZED RATIO 2.5; PROTHROMBIN TIME 26.5 (9.2-11.2)
[2016-06-07 07:42] VITALS: BP 111/58
[2016-06-07 08:12] LABS: ANION GAP 6 MEQ/L (2-14); CHLORIDE 98 MEQ/L (99-109); FERRITIN 179 NG/ML (10-291); GFR ESTIMATE (CALCULATED) 15 mL/min/; GLUCOSE 65 mg/dL (70-99); IRON 58 MCG/DL (35-150); POTASSIUM 3.6 MEQ/L (3.7-5.4); SAMPLE HEMOLYSIS CHECK 0; SAMPLE ICTERIC CHECK 0; SAMPLE LIPEMIA CHECK 0; SODIUM 130 MEQ/L (136-147); UREA NITROGEN (BUN) 18 mg/dL (9-23)
[2016-06-07 16:35] VITALS: BP 96/47
[2016-06-07 18:47] LABS: ABSOLUTE RETICULOCYTE CT. 0.3 M/uL (0.02-0.08); IMM.RETIC FRACTION 23.6 % (3-19); RETIC HGB EQUIVALENT 31.3 (28-36); RETICULOCYTE COUNT 10.1 % (0.5-1.8)
[2016-06-07 20:04] VITALS: BP 100/58
[2016-06-08 00:48] VITALS: BP 104/50
[2016-06-08 07:22] LABS: INTER. NORMALIZED RATIO 2.8
[2016-06-08 07:30] LABS: EOSINOPHIL (%) 0 % (0-5); IMMATURE GRANULOCYTE (%) 0.3 % (0.0-0.7); INSTRUMENT ABS NEUTROPHIL CT 2.3 K/uL; LYMPHOCYTE COUNT 0.6 K/uL (1.0-2.8); MCH 29.8 PG (29.0-34.0); MCHC 31.4 G/DL (30.0-36.0); MCV 94.9 FL (83-99); MEAN PLAT.VOLUME 8.8 uM^3 (9.5-12.4); MONOCYTE (%) 10.6 % (3-12); MONOCYTE COUNT 0.4 K/uL (0-0.8); NEUTROPHIL (%) 69.4 % (45-76); NEUTROPHIL COUNT 2.3 K/uL (1.8-6.4); NRBC (%) 1.5 /100 WBC (0-0); PLATELET COUNT 75 K/uL (156-360); RBC DIS.WIDTH-SD 78.3 % (39-53); RED BLOOD COUNT 2.95 M/uL (3.80-5.20); WHITE BLOOD COUNT 3.3 K/uL (4.1-10.2)
[2016-06-08 08:42] VITALS: BP 112/57
[2016-06-08 11:52] VITALS: BP 136/59
[2016-06-08 16:36] VITALS: BP 125/58
[2016-06-08 19:34] VITALS: BP 95/66
[2016-06-08 23:25] VITALS: BP 98/58
[2016-06-09 03:49] VITALS: BP 128/59
[2016-06-09 06:38] LABS: PROTHROMBIN TIME 31.3 (9.2-11.2)
[2016-06-09 07:45] LABS: EOSINOPHIL (%) 0 % (0-5); HEMATOCRIT 29.2 % (36.0-46.0); IMMATURE GRANULOCYTE (%) 0.7 % (0.0-0.7); INSTRUMENT ABS NEUTROPHIL CT 1.8 K/uL; LYMPHOCYTE COUNT 0.7 K/uL (1.0-2.8); MCH 28.6 PG (29.0-34.0); MCHC 30.1 G/DL (30.0-36.0); MCV 94.8 FL (83-99); MEAN PLAT.VOLUME 9.2 uM^3 (9.5-12.4); MONOCYTE (%) 12.7 % (3-12); MONOCYTE COUNT 0.4 K/uL (0-0.8); NEUTROPHIL (%) 62.3 % (45-76); NEUTROPHIL COUNT 1.8 K/uL (1.8-6.4); NRBC (%) 1.4 /100 WBC (0-0); PLATELET COUNT 86 K/uL (156-360); RBC DIS.WIDTH-CV 23.1 % (11.8-14.6); RBC DIS.WIDTH-SD 77.4 % (39-53); RED BLOOD COUNT 3.08 M/uL (3.80-5.20); WHITE BLOOD COUNT 2.9 K/uL (4.1-10.2)
[2016-06-09 08:21] VITALS: BP 121/70
[2016-06-09 12:30] VITALS: BP 111/68
[2016-06-09 17:03] VITALS: BP 148/70
[2016-06-09 17:07] VITALS: BP 107/58
[2016-06-09 19:57] VITALS: BP 122/62
[2016-06-10 00:23] VITALS: BP 120/61
[2016-06-10 04:08] VITALS: BP 124/60
[2016-06-10 08:00] VITALS: BP 132/65
[2016-06-10 11:46] VITALS: BP 117/56
[2016-06-10 14:07] LABS: GFR ESTIMATE (CALCULATED) 13 mL/min/
[2016-06-10 15:31] LABS: HEMATOCRIT 31.1 % (36.0-46.0); MCH 28.6 PG (29.0-34.0); MCHC 29.9 G/DL (30.0-36.0); MCV 95.7 FL (83-99); MEAN PLAT.VOLUME 9.3 uM^3 (9.5-12.4); PLATELET COUNT 94 K/uL (156-360); RBC DIS.WIDTH-CV 23.7 % (11.8-14.6); RBC DIS.WIDTH-SD 81.1 % (39-53); RED BLOOD COUNT 3.25 M/uL (3.80-5.20); WHITE BLOOD COUNT 3.4 K/uL (4.1-10.2)
[2016-06-10 15:32] LABS: EOSINOPHIL (%) 0.3 % (0-5); IMMATURE GRANULOCYTE (%) 0.3 % (0.0-0.7); INSTRUMENT ABS NEUTROPHIL CT 2.5 K/uL; LYMPHOCYTE COUNT 0.6 K/uL (1.0-2.8); MONOCYTE COUNT 0.4 K/uL (0-0.8); NEUTROPHIL (%) 71.5 % (45-76); NEUTROPHIL COUNT 2.5 K/uL (1.8-6.4); NRBC (%) 1.2 /100 WBC (0-0)
[2016-06-10 15:40] LABS: ANION GAP 11 MEQ/L (2-14); CHLORIDE 98 MEQ/L (99-109); POTASSIUM 3.6 MEQ/L (3.7-5.4); SODIUM 132 MEQ/L (136-147)
[2016-06-10 15:46] LABS: GLUCOSE 92 mg/dL (70-99); UREA NITROGEN (BUN) 22 mg/dL (9-23)
[2016-06-10 16:54] LABS: INTER. NORMALIZED RATIO 2.7; PROTHROMBIN TIME 28.6 (9.2-11.2)
[2016-06-10] MEDS ORDERED: Tylenol Extra Streng PO (18:44)
[2016-06-10] MEDS ORDERED: PANTOPRAZOLE SO40 MG PO (18:45)
[2016-06-10 19:45] VITALS: BP 140/65
== END 2016-06-10 20:20 | DRG 871 ==
LOC: EME → EDBD 14:29 → EDOF 16:50 → 4EAST 16:50
PROVIDERS: Emergency Medicine; Internal Medicine; Internal Medicine Gastroenterology; Internal Medicine Nephrology; Specialist
PROC: 5A1D60Z (ICD-10-PCS; principal; 2016-06-05)
DX: A41.59 Other Gram-negative sepsis (principal); N18.6 End stage renal disease; Z68.42 Body mass index [BMI] 45.0-49.9, adult; I12.0 Hypertensive chronic kidney disease with stage 5 chronic kidney disease or end stage renal disease; N30.00 Acute cystitis without hematuria; F05 Delirium due to known physiological condition; J90 Pleural effusion, not elsewhere classified; D61.818 Other pancytopenia; L97.419 Non-pressure chronic ulcer of right heel and midfoot with unspecified severity; R18.8 Other ascites; E87.1 Hypo-osmolality and hyponatremia; E46 Unspecified protein-calorie malnutrition; I48.2 Chronic atrial fibrillation; B96.1 Klebsiella pneumoniae [K. pneumoniae] as the cause of diseases classified elsewhere; I87.2 Venous insufficiency (chronic) (peripheral); R68.0 Hypothermia, not associated with low environmental temperature; D63.1 Anemia in chronic kidney disease; I51.7 Cardiomegaly; E66.01 Morbid (severe) obesity due to excess calories; I50.9 Heart failure, unspecified; E03.9 Hypothyroidism, unspecified; K42.9 Umbilical hernia without obstruction or gangrene; K43.9 Ventral hernia without obstruction or gangrene; Z79.82 Long term (current) use of aspirin; Z99.2 Dependence on renal dialysis; I25.2 Old myocardial infarction; Z86.73 Personal history of transient ischemic attack (TIA), and cerebral infarction without residual deficits; Z80.1 Family history of malignant neoplasm of trachea, bronchus and lung; Z82.0 Family history of epilepsy and other diseases of the nervous system
CPT/HCPCS: 71010; 76705; 80048; 80053; 80069; 80170; 80202; 81003; 82272; 82565; 82607; 82728; 82746; 83540; 83605; 84439; 84443; 84466; 85014; 85018; 85025; 85045; 85610; 86850; 86900; 86901; 86920; 87040; 87077; 87086; 87186; 87641; 93005; 94799; 99281; 99285; J1580; J1644; J2543; J3370; J7030; J7050; P9016

== ENCOUNTER 2016-08-21 22:21 | Inpatient (IN) | payer OTHER, BC ==
[~2016-08-21] VITALS: Ht 162.6 cm; Wt 84.7 kg
[~2016-08-21 22:21] MED LIST changes: +COUMADIN3 MG PO; +DIALYVITE 3,001 EACH PO; +LEVO-T75 MCG PO; +OXYBUTYNIN CHLOR5 M1 PO; +PANTOPRAZOLE SO40 MG PO; +Tylenol Extra Streng PO
[2016-08-21 23:19] LABS: EOSINOPHIL (%) 2.4 % (0-5); EOSINOPHIL COUNT 0.1 K/uL (0-0.3); HEMATOCRIT 41.3 % (36.0-46.0); IMMATURE GRANULOCYTE (%) 0.2 % (0.0-0.7); INSTRUMENT ABS NEUTROPHIL CT 3.4 K/uL; LYMPHOCYTE COUNT 0.8 K/uL (1.0-2.8); MCH 29.6 PG (29.0-34.0); MCHC 31.7 G/DL (30.0-36.0); MCV 93.2 FL (83-99); MEAN PLAT.VOLUME 10.1 uM^3 (9.5-12.4); MONOCYTE (%) 6.9 % (3-12); MONOCYTE COUNT 0.3 K/uL (0-0.8); NEUTROPHIL (%) 73.4 % (45-76); NEUTROPHIL COUNT 3.4 K/uL (1.8-6.4); PLATELET COUNT 65 K/uL (156-360); RBC DIS.WIDTH-CV 16.2 % (11.8-14.6); RBC DIS.WIDTH-SD 55.1 % (39-53); RED BLOOD COUNT 4.43 M/uL (3.80-5.20); WHITE BLOOD COUNT 4.7 K/uL (4.1-10.2)
[2016-08-21 23:28] LABS: CHLORIDE 94 mEq/L (99-109); POTASSIUM 3.6 mEq/L (3.7-5.4); SODIUM 135 mEq/L (136-147)
[2016-08-21 23:29] LABS: MAGNESIUM 1.4 mg/dL (1.3-2.7)
[2016-08-21 23:31] LABS: GLUCOSE 74 mg/dL (70-99)
[2016-08-21 23:32] LABS: ANION GAP 11 MEQ/L (2-14)
[2016-08-21 23:33] LABS: TOTAL BILIRUBIN 1.1 mg/dL (0.0-1.0)
[2016-08-21 23:35] LABS: ALKALINE PHOSPHATASE 68 IU/L (3-129); GFR ESTIMATE (CALCULATED) 21 mL/min/
[2016-08-21 23:36] LABS: INTER. NORMALIZED RATIO 1.3; PROTHROMBIN TIME 13.6 (9.2-11.2); PTT 34.5 (25-32); UREA NITROGEN (BUN) 13 mg/dL (9-23)
[2016-08-21 23:47] LABS: TROP-I INTERPRETATION NEGATIVE; TROPONIN-I 0.06 ng/mL (0.0-0.30)
[2016-08-22] MEDS ORDERED: LASIX40 MG PO (00:47)
[2016-08-22] MEDS ORDERED: LOSARTAN POTASS50 MG PO (00:47)
[2016-08-22 02:36] LABS: D-DIMER ELISA 2.44 mg/L FEU (< 0.57)
[2016-08-22 04:20] VITALS: BP 106/72; BP 106/76; BP 95/64
[2016-08-22 06:34] LABS: EOSINOPHIL (%) 4.2 % (0-5); EOSINOPHIL COUNT 0.2 K/uL (0-0.3); HEMATOCRIT 40.4 % (36.0-46.0); IMMATURE GRANULOCYTE (%) 0.2 % (0.0-0.7); INSTRUMENT ABS NEUTROPHIL CT 3.5 K/uL; LYMPHOCYTE COUNT 0.8 K/uL (1.0-2.8); MCH 29.6 PG (29.0-34.0); MCHC 31.2 G/DL (30.0-36.0); MCV 94.8 FL (83-99); MEAN PLAT.VOLUME 10.2 uM^3 (9.5-12.4); MONOCYTE (%) 7.7 % (3-12); MONOCYTE COUNT 0.4 K/uL (0-0.8); NEUTROPHIL (%) 70.5 % (45-76); NEUTROPHIL COUNT 3.5 K/uL (1.8-6.4); PLATELET COUNT 73 K/uL (156-360); RBC DIS.WIDTH-CV 16.2 % (11.8-14.6); RBC DIS.WIDTH-SD 57.1 % (39-53); RED BLOOD COUNT 4.26 M/uL (3.80-5.20)
[2016-08-22 06:48] LABS: METH RESISTANT S AUREUS PCR POSITIVE (NEGATIVE)
[2016-08-22 06:49] LABS: PROBE CHECK PASS
[2016-08-22 06:53] LABS: ANION GAP 12 MEQ/L (2-14); CHLORIDE 95 MEQ/L (99-109); GFR ESTIMATE (CALCULATED) 19 mL/min/; GLUCOSE 71 mg/dL (70-99); POTASSIUM 3.5 MEQ/L (3.7-5.4); SAMPLE HEMOLYSIS CHECK 0; SAMPLE ICTERIC CHECK 0; SAMPLE LIPEMIA CHECK 0; SODIUM 136 MEQ/L (136-147); UREA NITROGEN (BUN) 14 mg/dL (9-23)
[2016-08-22 09:00] VITALS: BP 98/52
[2016-08-22 11:17] LABS: ADD MIUA? YES; BILIRUBIN NEGATIVE; BLOOD LARGE; COLOR AMBER ((YELLOW)); GLUCOSE (STRIP) NEGATIVE; KETONES NEGATIVE; LEUKOCYTES LARGE; NITRITE NEGATIVE; PROTEIN (STRIP) 100; SPECIFIC GRAVITY 1.014 (1.000-1.030); UROBILINOGEN 0.2 MG/DL (0.2-1.0)
[2016-08-22 11:45] LABS: BACTERIA 3+ /HPF; BUDDING YEAST 4+; CALCIUM OXALATE CRYSTALS 3+ /HPF; EPITHELIAL CELLS 4+ /HPF; MUCUS TRACE /LPF; RED BLOOD CELLS NONE SEEN /HPF (0-5); WHITE BLOOD CELLS TNTC /HPF (0-5); WHITE BLOOD CELLS CLUMP MANY /HPF (0-5)
[2016-08-22 11:55] LABS: POINT-OF-CARE METER ID UU14174216
[2016-08-22 12:46] VITALS: BP 96/50
[2016-08-22 15:48] VITALS: BP 100/70
[2016-08-22 16:38] LABS: POINT-OF-CARE METER ID UU13113781
[2016-08-22 19:30] VITALS: BP 90/46
[2016-08-23 01:14] VITALS: BP 96/42
[2016-08-23 04:11] VITALS: BP 98/44
[2016-08-23 07:52] VITALS: BP 107/53
[2016-08-23 08:53] LABS: EOSINOPHIL (%) 5.2 % (0-5); EOSINOPHIL COUNT 0.3 K/uL (0-0.3); HEMATOCRIT 34.8 % (36.0-46.0); IMMATURE GRANULOCYTE (%) 0.4 % (0.0-0.7); INSTRUMENT ABS NEUTROPHIL CT 3.5 K/uL; LYMPHOCYTE COUNT 0.9 K/uL (1.0-2.8); MCH 30.9 PG (29.0-34.0); MCHC 32.2 G/DL (30.0-36.0); MCV 95.9 FL (83-99); MEAN PLAT.VOLUME 10.4 uM^3 (9.5-12.4); MONOCYTE (%) 7.4 % (3-12); MONOCYTE COUNT 0.4 K/uL (0-0.8); NEUTROPHIL (%) 68.1 % (45-76); NEUTROPHIL COUNT 3.5 K/uL (1.8-6.4); PLATELET COUNT 83 K/uL (156-360); RBC DIS.WIDTH-CV 16.4 % (11.8-14.6); RBC DIS.WIDTH-SD 58.6 % (39-53); RED BLOOD COUNT 3.63 M/uL (3.80-5.20); WHITE BLOOD COUNT 5.2 K/uL (4.1-10.2)
[2016-08-23 10:59] LABS: ALKALINE PHOSPHATASE 61 IU/L (3-129); ANION GAP 9 MEQ/L (2-14); CHLORIDE 93 MEQ/L (99-109); GFR ESTIMATE (CALCULATED) 14 mL/min/; GLUCOSE 82 mg/dL (70-99); POTASSIUM 3.5 MEQ/L (3.7-5.4); SAMPLE HEMOLYSIS CHECK 0; SAMPLE ICTERIC CHECK 0; SAMPLE LIPEMIA CHECK 0; SODIUM 134 MEQ/L (136-147); TOTAL BILIRUBIN 0.7 MG/DL (0.0-1.0)
[2016-08-23 11:01] LABS: UREA NITROGEN (BUN) 24 mg/dL (9-23)
[2016-08-23 13:29] VITALS: BP 123/57
[2016-08-23 13:30] VITALS: BP 112/56
[2016-08-23 15:47] VITALS: BP 100/46
== END 2016-08-23 18:25 | disposition left against medical advice (07) | DRG 312 ==
LOC: EME → EDBD 22:21 → 2EAST 08-22 01:07 → EDOF 08-22 01:07 → 4EAST 08-22 01:07 → 2EAST 08-22 21:50 → 4EAST 08-22 21:52 → 2EAST 08-22 23:41
PROVIDERS: Emergency Medicine; Hospitalist
PROC: 5A1D00Z (ICD-10-PCS; principal; 2016-08-23)
DX: R55 Syncope and collapse (principal); E87.1 Hypo-osmolality and hyponatremia; E86.0 Dehydration; L97.419 Non-pressure chronic ulcer of right heel and midfoot with unspecified severity; I13.2 Hypertensive heart and chronic kidney disease with heart failure and with stage 5 chronic kidney disease, or end stage renal disease; N18.6 End stage renal disease; I50.9 Heart failure, unspecified; R41.82 Altered mental status, unspecified; E87.6 Hypokalemia; N76.6 Ulceration of vulva; S70.12XA Contusion of left thigh, initial encounter; W18.30XA Fall on same level, unspecified, initial encounter; D63.1 Anemia in chronic kidney disease; J44.9 Chronic obstructive pulmonary disease, unspecified; Z99.81 Dependence on supplemental oxygen; D69.6 Thrombocytopenia, unspecified; I65.23 Occlusion and stenosis of bilateral carotid arteries; E66.01 Morbid (severe) obesity due to excess calories; R21 Rash and other nonspecific skin eruption; E03.9 Hypothyroidism, unspecified; I48.2 Chronic atrial fibrillation; I25.10 Atherosclerotic heart disease of native coronary artery without angina pectoris; I87.2 Venous insufficiency (chronic) (peripheral); I87.8 Other specified disorders of veins; Z68.31 Body mass index [BMI] 31.0-31.9, adult; Y92.019 Unspecified place in single-family (private) house as the place of occurrence of the external cause; I25.2 Old myocardial infarction; Z99.2 Dependence on renal dialysis; Z86.73 Personal history of transient ischemic attack (TIA), and cerebral infarction without residual deficits; Z79.01 Long term (current) use of anticoagulants
CPT/HCPCS: 70450; 71010; 73560; 73700; 74176; 78582; 80048; 80053; 81003; 82948; 83605; 83735; 84100; 84484; 85025; 85379; 85610; 85730; 87040; 87070; 87075; 87077; 87106; 87147; 87186; 87205; 87641; 87801; 93005; 94799; 99281; 99285; A9540; A9567; J1644; J1756; J1815; J3370; J7030

== ENCOUNTER 2017-08-15 11:34 | Emergency (ER) | payer OTHER, BC ==
[~2017-08-15] VITALS: Ht 167.6 cm; Wt 72.2 kg
[~2017-08-15 11:34] MED LIST changes: +LASIX40 MG PO
[2017-08-15 12:52] LABS: HEMATOCRIT 29.9 % (36.0-46.0); HEMOGLOBIN 9.8 G/DL (11.9-15.5); MCHC 32.8 G/DL (30.0-36.0); MCV 97.7 FL (83-99); PLATELET COUNT 131 K/uL (156-360); RBC DIS.WIDTH-CV 15.9 % (11.8-14.6); RBC DIS.WIDTH-SD 56.4 % (39-53); RED BLOOD COUNT 3.06 M/uL (3.80-5.20); WHITE BLOOD COUNT 4.8 K/uL (4.1-10.2)
[2017-08-15 12:56] LABS: ALBUMIN 3.4 g/dL (3.2-4.8); CHLORIDE 91 mEq/L (99-109); POTASSIUM 3.9 mEq/L (3.7-5.4); SODIUM 130 mEq/L (136-147)
[2017-08-15 12:59] LABS: GLUCOSE 87 mg/dL (70-99); INTER. NORMALIZED RATIO 2.4; TOTAL PROTEIN 7.2 g/dL (6.4-8.3)
[2017-08-15 13:02] LABS: ALKALINE PHOSPHATASE 87 IU/L (3-129); CREATININE 3.7 mg/dL (0.6-1.3); GFR ESTIMATE (CALCULATED) 12 mL/min/
[2017-08-15 13:03] LABS: UREA NITROGEN (BUN) 19 mg/dL (9-23)
[2017-08-15 13:04] LABS: AST (GOT) 16 IU/L (2-34)
[2017-08-15 13:05] LABS: ALT (GPT) 8 IU/L (3-49)
[2017-08-15] MEDS ORDERED: VITAMIN D31000 UNIT PO (17:39)
[2017-08-15] MEDS ORDERED: OXYBUTYNIN CHLOR5 MG PO (17:39)
[2017-08-15 18:56] VITALS: BP 116/52
== END 2017-08-15 18:57 | disposition home or self-care (01) ==
LOC: EME 11:34
PROVIDERS: Family Medicine
DX: S20.219A Contusion of unspecified front wall of thorax, initial encounter (principal); S00.03XA Contusion of scalp, initial encounter; W01.190A Fall on same level from slipping, tripping and stumbling with subsequent striking against furniture, initial encounter; Y92.008 Other place in unspecified non-institutional (private) residence as the place of occurrence of the external cause; I13.2 Hypertensive heart and chronic kidney disease with heart failure and with stage 5 chronic kidney disease, or end stage renal disease; I50.9 Heart failure, unspecified; N18.6 End stage renal disease; Z99.2 Dependence on renal dialysis; I48.91 Unspecified atrial fibrillation; E87.1 Hypo-osmolality and hyponatremia; I25.10 Atherosclerotic heart disease of native coronary artery without angina pectoris; E03.9 Hypothyroidism, unspecified; I25.2 Old myocardial infarction; Z86.73 Personal history of transient ischemic attack (TIA), and cerebral infarction without residual deficits; Z82.3 Family history of stroke; Z87.440 Personal history of urinary (tract) infections; Z79.01 Long term (current) use of anticoagulants
CPT/HCPCS: 70450; 70486; 71101; 80053; 85027; 85610; 99281; 99285

== ENCOUNTER 2017-09-07 18:23 | Emergency (ER) | payer OTHER, BC ==
[~2017-09-07] VITALS: Ht 160 cm; Wt 71.3 kg
[~2017-09-07 18:23] MED LIST changes: -LEVO-T150 MCG PO; +SYNTHROID125 MCG PO; +VITAMIN D31000 UNIT PO
[2017-09-07 19:04] LABS: HEMATOCRIT 31.7 % (36.0-46.0); HEMOGLOBIN 10.4 G/DL (11.9-15.5); MCH 32.5 PG (29.0-34.0); MCHC 32.8 G/DL (30.0-36.0); MCV 99.1 FL (83-99); PLATELET COUNT 99 K/uL (156-360); RBC DIS.WIDTH-CV 16.5 % (11.8-14.6); RBC DIS.WIDTH-SD 59.8 % (39-53); WHITE BLOOD COUNT 5.7 K/uL (4.1-10.2)
[2017-09-07 19:12] LABS: CHLORIDE 97 mEq/L (99-109); POTASSIUM 3.1 mEq/L (3.7-5.4); SODIUM 132 mEq/L (136-147)
[2017-09-07 19:14] LABS: GLUCOSE 85 mg/dL (70-99)
[2017-09-07 19:18] LABS: CREATININE 3.9 mg/dL (0.6-1.3); GFR ESTIMATE (CALCULATED) 12 mL/min/
[2017-09-07 19:19] LABS: UREA NITROGEN (BUN) 16 mg/dL (9-23)
[2017-09-07 20:52] VITALS: BP 103/41
== END 2017-09-07 21:03 | disposition home or self-care (01) ==
LOC: EME 18:23
PROVIDERS: Physician Assistant
DX: L89.309 Pressure ulcer of unspecified buttock, unspecified stage (principal); R53.1 Weakness; I25.2 Old myocardial infarction; I13.0 Hypertensive heart and chronic kidney disease with heart failure and stage 1 through stage 4 chronic kidney disease, or unspecified chronic kidney disease; I50.9 Heart failure, unspecified; N18.9 Chronic kidney disease, unspecified; Z86.73 Personal history of transient ischemic attack (TIA), and cerebral infarction without residual deficits; Z86.14 Personal history of Methicillin resistant Staphylococcus aureus infection; Z79.01 Long term (current) use of anticoagulants
CPT/HCPCS: 80048; 85027; 99281; 99284

== ENCOUNTER 2017-09-10 16:05 | Inpatient (IN) | payer OTHER, BC ==
[~2017-09-10] VITALS: Ht 170.2 cm; Wt 70.6 kg
[2017-09-10 16:56] LABS: HEMATOCRIT 32.1 % (36.0-46.0); HEMOGLOBIN 10.5 G/DL (11.9-15.5); MCH 32.3 PG (29.0-34.0); MCHC 32.7 G/DL (30.0-36.0); MCV 98.8 FL (83-99); NRBC (%) 0.4 /100 WBC (0-0); PLATELET COUNT 81 K/uL (156-360); RBC DIS.WIDTH-CV 17.4 % (11.8-14.6); RBC DIS.WIDTH-SD 61.7 % (39-53); RED BLOOD COUNT 3.25 M/uL (3.80-5.20); WHITE BLOOD COUNT 4.9 K/uL (4.1-10.2)
[2017-09-10 17:02] LABS: INTER. NORMALIZED RATIO 1.2
[2017-09-10 17:04] LABS: ALBUMIN 2.9 g/dL (3.2-4.8); CHLORIDE 97 mEq/L (99-109); POTASSIUM 3.2 mEq/L (3.7-5.4); PTT 33.8 SEC (25-37); SODIUM 131 mEq/L (136-147)
[2017-09-10 17:07] LABS: GLUCOSE 92 mg/dL (70-99); TOTAL PROTEIN 6.3 g/dL (6.4-8.3)
[2017-09-10 17:08] LABS: TOTAL BILIRUBIN 1.1 mg/dL (0.0-1.0)
[2017-09-10 17:10] LABS: ALKALINE PHOSPHATASE 111 IU/L (3-129); CREATININE 3.9 mg/dL (0.6-1.3); GFR ESTIMATE (CALCULATED) 12 mL/min/
[2017-09-10 17:11] LABS: UREA NITROGEN (BUN) 18 mg/dL (9-23)
[2017-09-10 17:12] LABS: AST (GOT) 20 IU/L (2-34)
[2017-09-10 17:13] LABS: ALT (GPT) 19 IU/L (3-49)
[2017-09-10 18:10] LABS: APPEARANCE TURBID ((CLEAR)); BILIRUBIN NEGATIVE; BLOOD MODERATE; COLOR YELLOW ((YELLOW)); GLUCOSE (STRIP) NEGATIVE; KETONES 5; LEUKOCYTES MODERATE; NITRITE NEGATIVE; PROTEIN (STRIP) 100; SPECIFIC GRAVITY 1.014 (1.000-1.030)
[2017-09-10 18:34] LABS: RED BLOOD CELLS TNTC /HPF (0-5); WHITE BLOOD CELLS TNTC /HPF (0-5)
[2017-09-10 18:35] LABS: UCUL ADDED? YES
[2017-09-10] MEDS ORDERED: MIDODRINE HCL10 MG PO (20:41)
[2017-09-11 00:34] VITALS: BP 99/53
[2017-09-11 06:06] LABS: BASOPHIL (%) 0.4 % (0-1); EOSINOPHIL (%) 2.9 % (0-5); EOSINOPHIL COUNT 0.1 K/uL (0-0.3); HEMATOCRIT 30.2 % (36.0-46.0); HEMOGLOBIN 9.8 G/DL (11.9-15.5); IMMATURE GRANULOCYTE (%) 0.4 % (0.0-0.7); LYMPHOCYTE (%) 14.5 % (15-42); LYMPHOCYTE COUNT 0.7 K/uL (1.0-2.8); MCH 32.2 PG (29.0-34.0); MCHC 32.5 G/DL (30.0-36.0); MCV 99.3 FL (83-99); MONOCYTE (%) 10.8 % (3-12); MONOCYTE COUNT 0.5 K/uL (0-0.8); NEUTROPHIL COUNT 3.2 K/uL (1.8-6.4); PLATELET COUNT 84 K/uL (156-360); RBC DIS.WIDTH-CV 17.5 % (11.8-14.6); RBC DIS.WIDTH-SD 62.4 % (39-53); RED BLOOD COUNT 3.04 M/uL (3.80-5.20); WHITE BLOOD COUNT 4.5 K/uL (4.1-10.2)
[2017-09-11 06:30] LABS: CHLORIDE 98 MEQ/L (99-109); CREATININE 4.3 MG/DL (0.6-1.3); GFR ESTIMATE (CALCULATED) 10 mL/min/; GLUCOSE 91 mg/dL (70-99); POTASSIUM 3.3 MEQ/L (3.7-5.4); SODIUM 133 MEQ/L (136-147); UREA NITROGEN (BUN) 22 mg/dL (9-23)
[2017-09-11 07:35] VITALS: BP 104/55
[2017-09-11 15:40] VITALS: BP 118/59
[2017-09-12 00:13] VITALS: BP 111/72
[2017-09-12 06:57] LABS: BASOPHIL (%) 0.4 % (0-1); EOSINOPHIL (%) 2.4 % (0-5); EOSINOPHIL COUNT 0.1 K/uL (0-0.3); HEMATOCRIT 32.5 % (36.0-46.0); HEMOGLOBIN 10.1 G/DL (11.9-15.5); IMMATURE GRANULOCYTE (%) 0.4 % (0.0-0.7); LYMPHOCYTE (%) 14.9 % (15-42); LYMPHOCYTE COUNT 0.7 K/uL (1.0-2.8); MCH 30.9 PG (29.0-34.0); MCHC 31.1 G/DL (30.0-36.0); MCV 99.4 FL (83-99); MONOCYTE (%) 10.1 % (3-12); MONOCYTE COUNT 0.5 K/uL (0-0.8); NEUTROPHIL (%) 71.8 % (45-76); NEUTROPHIL COUNT 3.3 K/uL (1.8-6.4); PLATELET COUNT 84 K/uL (156-360); RBC DIS.WIDTH-CV 18.2 % (11.8-14.6); RBC DIS.WIDTH-SD 64.2 % (39-53); RED BLOOD COUNT 3.27 M/uL (3.80-5.20); WHITE BLOOD COUNT 4.6 K/uL (4.1-10.2)
[2017-09-12 07:25] LABS: CHLORIDE 95 MEQ/L (99-109); GFR ESTIMATE (CALCULATED) 9 mL/min/; GLUCOSE 79 mg/dL (70-99); SODIUM 129 MEQ/L (136-147); UREA NITROGEN (BUN) 30 mg/dL (9-23)
[2017-09-12 07:26] LABS: POTASSIUM 4.3 MEQ/L (3.7-5.4); PREALBUMIN 3.7 mg/dL (10-40)
[2017-09-12 15:00] VITALS: BP 135/62
[2017-09-12 23:43] VITALS: BP 122/58
[2017-09-13 07:23] VITALS: BP 116/56
[2017-09-13 10:54] LABS: CHLORIDE 98 MEQ/L (99-109); GFR ESTIMATE (CALCULATED) 16 mL/min/; POTASSIUM 3.8 MEQ/L (3.7-5.4); SODIUM 133 MEQ/L (136-147); UREA NITROGEN (BUN) 17 mg/dL (9-23)
[2017-09-13 10:59] LABS: GLUCOSE 116 mg/dL (70-99)
== END 2017-09-13 14:27 | DRG 689 ==
LOC: EME 16:05 → 5EAST 21:00 → EDOF 21:00 → ENRESERV 21:01 → 5EAST 23:02
PROVIDERS: Emergency Medicine; Internal Medicine; Internal Medicine Nephrology; Nurse Practitioner; Student in an Organized Health Care Education/Training Program
DX: N39.0 Urinary tract infection, site not specified (principal); G93.41 Metabolic encephalopathy; I13.2 Hypertensive heart and chronic kidney disease with heart failure and with stage 5 chronic kidney disease, or end stage renal disease; L89.320 Pressure ulcer of left buttock, unstageable; L89.321 Pressure ulcer of left buttock, stage 1; L89.311 Pressure ulcer of right buttock, stage 1; E46 Unspecified protein-calorie malnutrition; N18.6 End stage renal disease; I50.9 Heart failure, unspecified; I95.9 Hypotension, unspecified; R64 Cachexia; E86.0 Dehydration; Z99.2 Dependence on renal dialysis; L89.892 Pressure ulcer of other site, stage 2; L89.629 Pressure ulcer of left heel, unspecified stage; E66.01 Morbid (severe) obesity due to excess calories; E87.1 Hypo-osmolality and hyponatremia; I48.91 Unspecified atrial fibrillation; D63.1 Anemia in chronic kidney disease; E03.9 Hypothyroidism, unspecified; S00.03XA Contusion of scalp, initial encounter; Z91.15 Patient's noncompliance with renal dialysis; W19.XXXA Unspecified fall, initial encounter; Z91.81 History of falling; I25.2 Old myocardial infarction; I25.10 Atherosclerotic heart disease of native coronary artery without angina pectoris; Z86.73 Personal history of transient ischemic attack (TIA), and cerebral infarction without residual deficits; Z87.440 Personal history of urinary (tract) infections; M19.90 Unspecified osteoarthritis, unspecified site; I87.8 Other specified disorders of veins; I89.0 Lymphedema, not elsewhere classified; E87.6 Hypokalemia; Z68.24 Body mass index [BMI] 24.0-24.9, adult
CPT/HCPCS: 70450; 71045; 80048; 80053; 81003; 82140; 84134; 84443; 85025; 85027; 85610; 85730; 87040; 87086; 93005; 99281; 99284; 99285; J0696; J1644; P9047

== ENCOUNTER 2017-09-22 17:46 | Inpatient (IN) | payer OTHER, BC ==
[~2017-09-22] VITALS: Ht 165.1 cm; Wt 68.0 kg
[~2017-09-22 17:46] MED LIST changes: +MIDODRINE HCL10 MG PO
[2017-09-22 18:49] LABS: HEMATOCRIT 38.3 % (36.0-46.0); HEMOGLOBIN 12.1 G/DL (11.9-15.5); MCH 32.9 PG (29.0-34.0); MCHC 31.6 G/DL (30.0-36.0); NRBC (%) 1.3 /100 WBC (0-0); RBC DIS.WIDTH-CV 19.1 % (11.8-14.6); RBC DIS.WIDTH-SD 70.4 % (39-53); RED BLOOD COUNT 3.68 M/uL (3.80-5.20); WHITE BLOOD COUNT 6.3 K/uL (4.1-10.2)
[2017-09-22 18:52] LABS: MCV 104.1 FL (83-99); PLATELET COUNT 99 K/uL (156-360)
[2017-09-22 19:02] LABS: ALBUMIN 3.3 g/dL (3.2-4.8); CHLORIDE 99 mEq/L (99-109); POTASSIUM 4.1 mEq/L (3.7-5.4); SODIUM 132 mEq/L (136-147)
[2017-09-22 19:04] LABS: GLUCOSE 86 mg/dL (70-99); TOTAL PROTEIN 6.8 g/dL (6.4-8.3)
[2017-09-22 19:06] LABS: TOTAL BILIRUBIN 0.7 mg/dL (0.0-1.0)
[2017-09-22 19:08] LABS: ALKALINE PHOSPHATASE 134 IU/L (3-129); GFR ESTIMATE (CALCULATED) 25 mL/min/
[2017-09-22 19:09] LABS: AST (GOT) 15 IU/L (2-34); UREA NITROGEN (BUN) 8 mg/dL (9-23)
[2017-09-22 19:10] LABS: DIRECT BILIRUBIN 0.4 mg/dL (0.0-0.3)
[2017-09-22 19:11] LABS: ALT (GPT) 10 IU/L (3-49); LIPASE 12 U/L (1.0-51.0)
[2017-09-22 19:12] LABS: TROP-I INTERPRETATION NEGATIVE; TROPONIN-I 0.04 ng/mL (0.0-0.30)
[2017-09-22 19:41] LABS: BICARBONATE 26.1 mEq/L (22-26); CARBOXY HGB 2.6 % (0-5); COMMENTS - BLOOD GASES C+; DEVICE NC; METHEMOGLOBIN 0.5 % (0-1.5); O2 FLOW 3 L/MIN; PCO2 61 mm Hg (35-45); PO2 81 mm Hg (80-100); SITE LR; pH 7.24 (7.35-7.45)
[2017-09-22 19:42] LABS: BASE EXCESS -2.2 mEq/L (-3 to +3)
[2017-09-22 20:25] LABS: CARBON DIOXIDE (BICARBONATE) 27.5 MEQ/L (20-31)
[2017-09-22 20:40] LABS: APPEARANCE TURBID ((CLEAR)); BILIRUBIN NEGATIVE; BLOOD MODERATE; COLOR AMBER ((YELLOW)); GLUCOSE (STRIP) NEGATIVE; KETONES NEGATIVE; LEUKOCYTES SMALL; NITRITE NEGATIVE; PROTEIN (STRIP) 100; SPECIFIC GRAVITY 1.016 (1.000-1.030); UROBILINOGEN 0.2 MG/DL (0.2-1.0)
[2017-09-22 21:00] LABS: COMMENTS - BLOOD GASES C+; DEVICE MASK VENT; FI02 50 %; MECHANICAL RATE 16 resp/min; MODE SIMV; PEEP 5 CM/H20; PRES. SUPPORT 14 CM/H2O; SITE LR; TIDAL VOLUME 400 ML; TOTAL RESP RATE 18 resp/min
[2017-09-22 21:01] LABS: pH 7.21 (7.35-7.45)
[2017-09-22 21:02] LABS: BASE EXCESS -2.3 mEq/L (-3 to +3); BICARBONATE 26.8 mEq/L (22-26); CARBOXY HGB 2.3 % (0-5); METHEMOGLOBIN 0.8 % (0-1.5); O2 SATURATION (CALCULATED) 95.7 % (95-99); PCO2 67 mm Hg (35-45); PO2 142 mm Hg (80-100)
[2017-09-22 21:07] LABS: EPITHELIAL CELLS 3+ /HPF; MUCUS NONE SEEN /LPF; WHITE BLOOD CELLS TNTC /HPF (0-5)
[2017-09-22 21:08] LABS: BACTERIA 2+ /HPF
[2017-09-23] MEDS ORDERED: NITROGLYCERIN0.4 MG SL (00:19)
[2017-09-23] MEDS ORDERED: ASCORBIC ACID500 M3 PO (00:22)
[2017-09-23] MEDS ORDERED: ZINC SULFATE220 MG PO (00:23)
[2017-09-23] MEDS ORDERED: TYLENOL325 M2 PO (00:30)
[2017-09-23] MEDS ORDERED: NEPRO PO (00:40)
[2017-09-23] MEDS ORDERED: ELIQUIS2.5 MG PO (00:41)
[2017-09-23] MEDS ORDERED: [UNRECOGNIZED DRUG - OTHER] TD (00:48)
[2017-09-23 02:07] VITALS: BP 114/50
[2017-09-23 06:28] LABS: HEMATOCRIT 39.4 % (36.0-46.0); HEMOGLOBIN 12.1 G/DL (11.9-15.5); MCH 32.7 PG (29.0-34.0); MCHC 30.7 G/DL (30.0-36.0); MCV 106.5 FL (83-99); NRBC (%) 1.3 /100 WBC (0-0); PLATELET COUNT 115 K/uL (156-360); RBC DIS.WIDTH-CV 19.7 % (11.8-14.6); RBC DIS.WIDTH-SD 73.8 % (39-53); WHITE BLOOD COUNT 7.1 K/uL (4.1-10.2)
[2017-09-23 06:30] LABS: CHLORIDE 99 MEQ/L (99-109); GFR ESTIMATE (CALCULATED) 18 mL/min/; GLUCOSE 91 mg/dL (70-99); POTASSIUM 4.5 MEQ/L (3.7-5.4); SODIUM 132 MEQ/L (136-147); UREA NITROGEN (BUN) 10 mg/dL (9-23)
[2017-09-23 06:33] LABS: CREATININE 2.6 MG/DL (0.6-1.3)
[2017-09-23 08:14] VITALS: BP 131/70
[2017-09-23 16:10] VITALS: BP 100/66
[2017-09-24 00:22] VITALS: BP 105/59
[2017-09-24 06:29] LABS: HEMATOCRIT 37.9 % (36.0-46.0); HEMOGLOBIN 11.3 G/DL (11.9-15.5); MCH 32.4 PG (29.0-34.0); MCHC 29.8 G/DL (30.0-36.0); MCV 108.6 FL (83-99); NRBC (%) 2.1 /100 WBC (0-0); PLATELET COUNT 100 K/uL (156-360); RBC DIS.WIDTH-CV 19.5 % (11.8-14.6); RED BLOOD COUNT 3.49 M/uL (3.80-5.20); WHITE BLOOD COUNT 6.7 K/uL (4.1-10.2)
[2017-09-24 06:50] LABS: CHLORIDE 99 MEQ/L (99-109); SODIUM 133 MEQ/L (136-147)
[2017-09-24 07:00] LABS: GFR ESTIMATE (CALCULATED) 13 mL/min/; GLUCOSE 69 mg/dL (70-99); UREA NITROGEN (BUN) 16 mg/dL (9-23)
[2017-09-24 07:20] VITALS: BP 98/62
[2017-09-24 07:20] LABS: CREATININE 3.6 MG/DL (0.6-1.3)
[2017-09-24 16:27] VITALS: BP 98/60
== END 2017-09-25 18:11 | DRG 871 ==
LOC: EME 17:46 → EDOF 22:30 → 5EAST 22:30 → ENRESERV 22:53 → 5EAST 09-23 00:38
PROVIDERS: Emergency Medicine; Family Medicine
DX: A41.9 Sepsis, unspecified organism (principal); N39.0 Urinary tract infection, site not specified; E03.9 Hypothyroidism, unspecified; I48.2 Chronic atrial fibrillation; I25.110 Atherosclerotic heart disease of native coronary artery with unstable angina pectoris; Z99.2 Dependence on renal dialysis; I13.2 Hypertensive heart and chronic kidney disease with heart failure and with stage 5 chronic kidney disease, or end stage renal disease; N18.6 End stage renal disease; I50.9 Heart failure, unspecified; Z86.73 Personal history of transient ischemic attack (TIA), and cerebral infarction without residual deficits; E87.4 Mixed disorder of acid-base balance; Z66 Do not resuscitate; D63.1 Anemia in chronic kidney disease; J44.9 Chronic obstructive pulmonary disease, unspecified; Z74.01 Bed confinement status; I65.23 Occlusion and stenosis of bilateral carotid arteries; R09.02 Hypoxemia; Z51.5 Encounter for palliative care; E78.5 Hyperlipidemia, unspecified; F32.9 Major depressive disorder, single episode, unspecified; I25.2 Old myocardial infarction; Z91.81 History of falling
CPT/HCPCS: 36600; 71045; 80048; 80076; 81003; 82803; 83605; 83690; 84484; 85027; 87086; 93005; 94002; 94640; 94799; 99281; 99285; A6214; J0696